=== PATIENT | male | born 1965 | race Caucasian/White ===

== ENCOUNTER 2024-02-03 13:10 | Outpatient (CLI) | payer BC, SELFPAY | END 2024-02-03 13:11 | disposition home or self-care (01) | PROVIDERS: PCP Emergency Medicine; Visit Provider Emergency Medicine | DX: Z00.00 Encounter for general adult medical examination without abnormal findings (principal); I10 Essential (primary) hypertension; R97.20 Elevated prostate specific antigen [PSA]; Z13.1 Encounter for screening for diabetes mellitus | CPT/HCPCS: 80048; 84153; 84154 ==

== ENCOUNTER 2024-03-01 10:19 | Outpatient (CLI) | payer BC, SELFPAY | END 2024-03-01 10:20 | disposition home or self-care (01) | LOC: LKVREF 10:20 | PROVIDERS: PCP Emergency Medicine; Visit Provider Emergency Medicine | DX: I10 Essential (primary) hypertension (principal) | CPT/HCPCS: 80048 ==

== ENCOUNTER 2024-03-23 14:15 | Outpatient (REF) | payer BC, SELFPAY ==
[2024-03-23 15:12] LABS: PSA Diagnostic* 7.14 ng/mL (0.10-4.00)
== END 2024-03-23 14:16 | disposition home or self-care (01) ==
LOC: NPINS 14:15
PROVIDERS: PCP Emergency Medicine; Visit Provider Urology
DX: R97.20 Elevated prostate specific antigen [PSA] (principal)
CPT/HCPCS: 84153

== ENCOUNTER 2024-06-14 10:44 | Outpatient (CLI) | payer BC, SELFPAY ==
[2024-06-16 23:51] LABS: Prostate Specific Antigen Free 1.6 ng/mL; Prostate Specific Antigen%Free 16 %; Prostate Specific AntigenTotal 9.9 ng/mL (0.0-4.0)
== END 2024-06-14 10:45 | disposition home or self-care (01) ==
LOC: NPINS 10:46
PROVIDERS: PCP Emergency Medicine; Visit Provider Urology
DX: R97.20 Elevated prostate specific antigen [PSA] (principal)
CPT/HCPCS: 84153; 84154

== ENCOUNTER 2024-08-23 09:05 | Outpatient (CLI) | payer BC, SELFPAY | END 2024-08-23 09:06 | disposition home or self-care (01) | LOC: LKVREF 09:05 | PROVIDERS: PCP Emergency Medicine; Visit Provider Emergency Medicine | DX: I10 Essential (primary) hypertension (principal) | CPT/HCPCS: 80048 ==

== ENCOUNTER 2025-02-22 09:35 | Outpatient (CLI) | payer BC, SELFPAY | END 2025-02-22 09:36 | disposition home or self-care (01) | LOC: NFLDREF 02-28 15:58 | PROVIDERS: PCP Family Medicine; Visit Provider Family Medicine | DX: E53.8 Deficiency of other specified B group vitamins (principal); K50.80 Crohn's disease of both small and large intestine without complications; I10 Essential (primary) hypertension; E78.5 Hyperlipidemia, unspecified; Z13.6 Encounter for screening for cardiovascular disorders | CPT/HCPCS: 80053; 80061; 82248; 82607 ==